=== PATIENT | female | born 1950 | race Caucasian/White ===

== ENCOUNTER → 2017-02-12 | Outpatient (CLI) | payer MEDICARE, OTHER ==
--- NOTE | 2017-02-13 19:39 | HKNOTE ---
DATE OF SERVICE: 02/12/2017 The patient comes in requesting cortisone injection into her right knee. She is going on a cruise i n 1 week. She would like to have a total knee replacement somewhere around about April or so this ye ar. Her x-rays were reviewed. She has severe arthritis of the right knee. MANAGEMENT: Under sterile conditions, given injection of 2 mL of Kenalog and 6 mL of 2% lidocaine i nto her right knee. She will be seen again when she is ready to consider proceeding with surgery. Note that we spent some time today discussing total knee replacement again. This included some of t he major possible complications and a description of what the operation involves, and she was also s hown some videos of patients who had previously had knee replacement surgery. Dictated By: RIYA SERNA/RAFI Conf#: [id number] DID#: [id number]
== END | disposition home or self-care (01) ==
LOC: HKI 13:33
DX: M17.11 Unilateral primary osteoarthritis, right knee (principal)
CPT/HCPCS: 20610; G0463

== ENCOUNTER → 2019-01-28 | Outpatient (CLI) | payer MEDICARE, OTHER ==
--- NOTE | 2019-01-28 15:11 | CONS ---
Assessment/Plan Assessment/Plan Hospital Course (Demo Recall) 68-year-old female with end-stage osteoarthritis of the right knee. Currently she wants to continue conservative management with injections. She does think she would want a total knee replacement later this year as the pain is severe enough that is interfering with daily life. However she would like to have an injection at she is going on vacation later this month. Plan: Right knee steroid injection ice Rest Low impact activity Assessment/Plan (Daily) Right knee steroid injection procedure: Risks and benefits of steroid injection reviewed with patient. The risks include infection, failure, pain, swelling, nerve/tendon/ligament damage. The patient verbalized understanding and verbal consent was obtained prior to procedure. The right knee was prepped in a sterile fashion with alcohol and betadine the site of injection was confirmed. Lateral approach was used. The skin and capsule was anesthetized with 3mL 1% lidocaine. The right knee was injected with 2mL 1% lidocaine, 2mL 0.25% bupivacaine, 40mg Depo-Medrol. Injection flowed freely. Good hemostasis was achieved and no complications noted. The patient tolerated the procedure well. Limit activity and ice for 24-48 hours Consultation Date/Type/Reason Admit Date/Time Date of Consultation: Jan 28, 2019 Reason for Consultation Right knee pain Date/Time of Note DATE: 01/28/19 TIME: 14:26 Hx of Present Illness Is a 68-year-old female with a chief complaint of right knee pain. The pain began approximately years ago. The patients pain is in the medial aspect of the right knee. Pain is not radiating to the lower leg. The pain is rated as a 7/10 and is described as sharp. Patient denies complaints of numbness or tingling. The pain is exacerbated by climbing stairs and ambulation. She has received a steroid injection approximately 2 years ago which gave several months of relief. She is interested in another steroid injection today prior to going on a vacation to [place] later this month. At this time she is not quite ready for total knee arthroplasty but she has disclosed that she may be ready later this year. Of note Dr. Webb performed a left total knee arthroplasty almost 10 years ago and she has no complaints of this knee. Duration: Years Injury: No Walking tolerance: A few blocks Limp: Sometimes Support: No Swelling: No Crepitation: No Instability: Yes Stairs: Banister Physical Therapy: Not recently Injections: Steroid injection NSAIDs: No Prior surgery: Left total knee Jose Ramon plus Back pain: No Hip pain: No Risk of AVN : No Patient denies fever, chills, shortness of breath, chest pain, nausea/vomiting, constipation, diarrhea, numbness, and tingling. Past Medical History Hypertension Allergies: Coded Allergies: No Known Allergy (Verified Allergy, Unknown, 05/30/09) Past Surgical History Left total knee arthroplasty by Dr. Webb 2009 Hysterectomy Social History Alcohol Use: rarely Smoking Status: Never smoker Drug Use: none Exam/Review of Systems Exam Vitals Weight: 135 pounds Height: 5 feet 7 inches Temperature: 98.4 Heart Rate: 86 Blood Pressure: 115/73 Respiratory Rate: 12 Exam General: Alert, oriented x3. No Acute Distress. Heart: Regular rate and rhythm. Lungs: No respiratory distress. No accessory muscle use. Musculoskeletal: Right Knee This is a well developed female who is alert, oriented times three and in no apparent distress. Skin is intact over the right knee as well as the lower extremity with no abrasions, lacerations, or ulcerations. Observation of the patient's gait reveals an antalgic gait with Large varus thrust. Frontal plane alignment is varus. There is pain on palpation of medial joint line. The patient demonstrates grinding anteriorly with ROM. Range of motion: 0 extension to approximately 140 degrees of flexion. Collateral ligament testing reveals no instability with varus or valgus stress at 0 and 30 degrees of flexion. There is pseudolaxity with varus deformity. Negative Samson's and negative posterior drawer. Neurovascularly intact with 5/5 EHL/tibialis anterior/gastroc. Sensation intact to light touch in a sural, saphenous, deep peroneal, superficial peroneal, medial and lateral plantar nerve distribution. Palpable, symmetric dorsalis pedis and posterior tibial pulses in both lower extremities. Hip examination normal. Imaging Imaging The patient received a standard set of films today that were personally reviewed. Imaging included a standing bilateral knee AP, PA flexion, merchant views and a dedicated lateral of the affected knee: There is varus alignment of the knee. There is complete loss of joint space medial compartment(s). There is moderate loss in the patellofemoral. There is osteophyte formation. There is subchondral sclerosis. There are subchondral cysts. Degenerative changes are most severe in the medial compartment(s) CARON MILLER MD Jan 28, 2019 14:36
--- NOTE | 2019-01-29 11:18 | RADRPT ---
PROCEDURE: Bilateral knee x-ray CLINICAL INDICATION: Pain TECHNIQUE: 4 views of the bilateral knees were obtained. COMPARISON: [facility] 10/30/2016 FINDINGS: Right: No fracture or dislocation. Tricompartmental arthrosis with advanced joint space narrowing at the medial and patellofemoral compartments, and mild joint space narrowing compartment, with tricomp artmental osteophyte formation. Moderate sized joint effusion. Left: Total arthroplasty appears intact and properly aligned. No periprosthetic fracture. Moderate s ized joint effusion. IMPRESSION: Right knee tricompartmental degenerative joint disease, advanced at the medial and patellofemoral com partments with moderate sized joint effusion. Degenerative changes have mildly progressed compared to prior radiograph. Left knee total arthroplasty is intact with moderate sized joint effusion. RPTAT: XX Physician Cristina Date Time Electronically viewed and signed by Poncho Tucker Physician on 01/29/2019 11:17 /
== END | disposition home or self-care (01) ==
LOC: HKI 15:23
PROVIDERS: ATTEND Orthopaedic Surgery Adult Reconstructive Orthopaedic Surgery
DX: M17.11 Unilateral primary osteoarthritis, right knee (principal); Z96.652 Presence of left artificial knee joint
CPT/HCPCS: 20610; 73564; G0463

== ENCOUNTER → 2019-05-13 | Outpatient (CLI) | payer MEDICARE, OTHER ==
--- NOTE | 2019-05-13 17:49 | CONS ---
Consult Date/Type/Reason Admit Date/Time Initial Consult Date Date/Time of Note DATE: 05/13/19 TIME: 17:31 Subjective 69-year-old female known to me for right knee osteoarthritis. She was last seen about 3 and half months ago for her right knee osteoarthritis. At that time a steroid injection was administered prior to her trip to [place]. Patient states that the injection only helped for a week or 2. She has severe pain in her knee. In addition she has a new anterior knee pain after falling a couple weeks ago onto her right knee and left arm. In regards to her knee pain she wishes to proceed with planning for right total knee arthroplasty. The shoulder pain began on April 23, 2019 when she fell and caught herself with her left arm. She did not have a direct fall onto her shoulder. The patients pain is in the anterior and lateral aspect of the left shoulder. Pain is not radiating to the elbow. The pain is rated as a 7/10. Patient denies complaints of numbness or tingling. The pain is exacerbated by overhead activities and reaching. There is pain at night when lying on the shoulder. The patient does not complain of weakness. The patient does not complain of loss of ROM. Pain is not relieved by NSAID's. Patient has been taking Aleve on a p.r.n. basis as well as using ice. She denies any neck pain. She has not had any injections. She has not had any physical therapy. Objective Vitals Weight: 136 point Height: 5 foot 7 inches Temperature: 90.1 Heart Rate: 70 Blood Pressure: 144/75 Respiratory Rate: 12 Exam General: Alert, oriented x3. No Acute Distress. Heart: Regular rate and rhythm. Lungs: No respiratory distress. No accessory muscle use. Musculoskeletal: Right Knee This is a well developed female who is alert, oriented times three and in no apparent distress. Skin is intact over the right knee as well as the lower extremity with no abrasions, lacerations, or ulcerations. Observation of the patient's gait reveals an antalgic gait with Large varus thrust. Frontal plane alignment is varus. There is pain on palpation of medial joint line. The patient demonstrates grinding anteriorly with ROM. Range of motion: 0 extension to approximately 140 degrees of flexion. Collateral ligament testing reveals no instability with varus or valgus stress at 0 and 30 degrees of flexion. There is pseudolaxity with varus deformity. Negative Samson's and negative posterior drawer. Neurovascularly intact with 5/5 EHL/tibialis anterior/gastroc. Sensation intact to light touch in a sural, saphenous, deep peroneal, superficial peroneal, medial and lateral plantar nerve distribution. Palpable, symmetric dorsalis pedis and posterior tibial pulses in both lower extremities. Hip examination normal. Left shoulder Skin is intact. There is no atrophy around the shoulder. TTP over anterior shoulder. ----- Active= Passive ROM: FE: 160 Abd: 160 ER: 80 IR: T10 Normal lift off or belly press ----- Muscle Strength Supraspinatus: 5/5 Subscapularis: 5/5 Infraspinatus: 5/5 Teres Minor: 5/5 ----- Positive impingement Negative Moisés's Test Negative drop Sign Negative Speed's Test Negative Yergason's Sign ----- Sensation intact to light touch in a median, ulnar, radial, and axillary distribution. Motor is intact in a median, ulnar, radial, anterior interosseous, and posterior interosseous nerve distribution. Radial and ulnar artery are +2. Wrist extension and flexion are intact. Compartments are soft Results/Medications Imaging The patient received a standard set of films today that were personally reviewed. Imaging included a standing bilateral knee AP, PA flexion, merchant views and a dedicated lateral of the affected knee: There is varus alignment of the knee. There is complete loss of joint space medial compartment and moderate loss in lateral and patellofemoral compartment(s). There is osteophyte formation. There is subchondral sclerosis. There are subchondral cysts. Degenerative changes are most severe in the medial compartment(s) The patient received a standard set of films of the affected shoulder including an AP, Grashey, Scapular Y and Axillary views. Films personally reviewed by myself: The glenohumeral joint is reduced. No osteoarthritis of the GHJ. No osteoarthritis of the AC joint. The humeral head is not high riding. There is no acetabularization of the acromion or femoralization of the humerus. There is no fracture. Assessment/Plan Hospital Course (Demo Recall) 69-year-old female with end-stage arthritis of the right knee and new left shoulder subacromial bursitis and impingement. At this time the patient has exhausted conservative therapy in regards to her right knee arthritis. She has failed steroid injections as well as NSAIDs. She would like to proceed with scheduling right total knee arthroplasty. In regards to her left shoulder there is very low concern for traumatic tear as she has full strength and range of motion of her shoulder. Her examination is significant for impingement and subacromial bursitis. Plan: NSAID regiment with meloxicam Physical therapy for left shoulder If her shoulder fails to improve we will offer a subacromial steroid injection Schedule for right total knee arthroplasty Follow-up for preop visit CARON MILLER MD May 13, 2019 17:49
--- NOTE | 2019-05-14 09:13 | RADRPT ---
PROCEDURE: XR Knees. CLINICAL INDICATION: Bilateral knee pain. TECHNIQUE: Total of eight views. Weightbearing frontal, oblique, and lateral views of the both kne es. Patellar views of both knees. COMPARISON: 01/28/2019. FINDINGS: On the right side, there is degenerative change with osteophytes arising from all 3 joint compartment margins and marked medial joint compartment narrowing with subchondral sclerosis. There is a small r ight knee joint effusion. On the left side, there is a total knee arthroplasty which appears satisfactory with no fracture, dis location, or loosening. There is no lytic or blastic lesion. IMPRESSION: 1. Moderate degenerative changes of the right knee, unchanged from 10/30/2016. 2. Total left knee arthroplasty, also unchanged. 3. Otherwise unremarkable study. RPTAT: QQ .Carlos Cazares MD, MD Date Time Electronically viewed and signed by .Carlos Cazares MD, MD on 05/14/2019 09:00 .R/
--- NOTE | 2019-05-14 09:37 | RADRPT ---
PROCEDURE: XR Left Shoulder. CLINICAL INDICATION: Left shoulder pain. TECHNIQUE: 4 views. Frontal , axillary view, Grashey view, and scapular Y-view. COMPARISON: No prior study is available for comparison. FINDINGS: There is no fracture or dislocation. The soft tissues are normal. Articular surfaces are intact. There is no lytic or blastic lesion. There is no radiopaque foreign body. IMPRESSION: 1. Normal images of the left shoulder. RPTAT: QQ .Carlos Cazares MD, Date Time Electronically viewed and signed by .Carlos Cazares MD, on 05/14/2019 09:37 .R/
== END | disposition home or self-care (01) ==
LOC: HKI 13:34
PROVIDERS: ATTEND Orthopaedic Surgery Adult Reconstructive Orthopaedic Surgery
DX: M17.11 Unilateral primary osteoarthritis, right knee (principal); M75.52 Bursitis of left shoulder
CPT/HCPCS: 73030; 73564; G0463